=== PATIENT | male | born 1965 | race American Indian/Alaskan Native ===

== ENCOUNTER 2021-01-31 09:20 | Outpatient (CLI) | payer OTHER | END 2021-01-31 09:21 | disposition home or self-care (01) | LOC: PF 09:20 | PROVIDERS: ATTEND Internal Medicine | DX: R06.02 Shortness of breath (principal); R06.00 Dyspnea, unspecified; M25.569 Pain in unspecified knee; R60.0 Localized edema; F43.10 Post-traumatic stress disorder, unspecified; M06.9 Rheumatoid arthritis, unspecified; I63.9 Cerebral infarction, unspecified; E78.00 Pure hypercholesterolemia, unspecified; F31.9 Bipolar disorder, unspecified; I72.9 Aneurysm of unspecified site | CPT/HCPCS: 94010; 94729 ==